=== PATIENT | female | born 1955 | race Caucasian/White ===

== ENCOUNTER 2020-01-03 06:52 | Emergency (ER) | payer OTHER, SELFPAY ==
[2020-01-03 07:08] VITALS: BP 169/102; PULSE 94; RESP 16; TEMP 36.6; O2SAT 97; BMI 38.0
--- NOTE | 2020-01-03 07:09 | ED_ITS ---
HPI - Dental/Oral General Chief complaint: General Medical Stated complaint: Lump Time Seen by Provider: 01/03/20 07:08 Source: patient Mode of arrival: ambulatory Limitations: no limitations History of Present Illness HPI Narrative: swelling has been going on for years Onset (ago): year(s) Duration: constant Severity: severe Related Data Allergies Allergy/AdvReac Type Severity Reaction Status Date / Time No Known Allergies Allergy Verified 01/03/20 07:15 Review of Systems Constitutional: Constitutional: Reports no additional constitutional complaint s Eyes: Eyes: Reports no additional eye complaints ENT: Denies dizziness Cardiovascular: Cardiovascular: Reports no additional cardiovascular complaints Respiratory: Respiratory: Reports as per HPI Gastrointestinal: Gastrointestinal: Reports no additional gastrointestinal complaints Genitourinary: Genitourinary: Reports no additional female genitourinary complaints Musculoskeletal: Musculoskeletal: Reports no additional musculoskeletal complaints Integumentary/Breasts: Skin/Breast: Denies rash Neurologic: Reports system reviewed and no additional complaints, except as documented, Denies dizziness and Denies Sensory deficit (Neuro) Psychiatric: Psychiatric: Denies anxiety [facility] Social History Social History Alcohol intake: current Alcohol intake frequency: holidays/special occasions only Alcohol type: wine Smoking Status: Current every day smoker Smoked in Last 30 Days: Yes Use of substances other than those prescribed or required for medical reasons: No Advance Directives: No Advance Directives Information Provided: No Physical Exam Vital Signs: Vital Signs: Vital Signs Temp Pulse Resp BP Pulse Ox 01/03/20 08:03 98.6 F 100 17 158/92 H 98 01/03/20 07:08 98 F 94 16 169/102 H 97 Body Mass Index 38.0 Const: Other: morbidly obese no acute distress Orientation/consciousness: oriented to person and patient oriented x3 Limitations: no limitations HENMT: Other: right mandible parotid large firm mass, mobile, pharynx normal Head: Yes normal to inspection Ears: external ears normal General nose exam: Normal external nose present Mouth: Normal oral and palatal mucosa present and oropharynx normal Throat: Yes posterior oropharynx normal Eyes: General: appearance normal, both eyes and all related structures Neck: Other: supple with large parotid mass Neck: Yes normal visual inspection Chest: Chest palpation & inspection: normal inspection of the chest Resp: Auscultation: clear to auscultation bilaterally Cardio: Jugular venous distension: no JVD Rate: regular rate Rhythm: regular rhythm Heart sounds: S1 normal heart sound present and S2 normal heart sound present GI: Inspection: Yes normal to inspection Palpation (GI): Soft to palpation, nontender and No hepatosplenomegaly present Auscultation: normal bowel sounds : General: Yes no CVA tenderness Back/Spine/Pelvis: Back: no CVA tenderness Skin: General skin exam: no rashes or lesions noted Neuro: General: oriented to person and patient oriented x3 Cranial nerves: Yes CN's II-XII intact bilaterally Motor exam (neuro): 5/5 motor strength present throughout Sensory Exam: No Sensory deficit (Neuro) Extrem: General: Yes normal to inspection Psych: Appearance: grossly normal Course Reevaluation(s) Reevaluation #1: Patient with CT that show right parotid mass, likely cancer will refer to ENT MDM - Dental/Oral MDM Narrative Medical decision making narrative: 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 Rowland Lab Data Result diagrams: 01/03/20 07:34 01/03/20 07:34 Labs: Lab Results 01/03/20 01/03/20 Range/Units 07:34 07:34 WBC 10.8 (4.8-10.8) X10*3/uL RBC 5.50 (4.20-5.50) X10*6/uL Hgb 16.5 H (12.0-16.0) g/dl Hct 50.5 H (37-47) % MCV 91.8 (80-98) fL MCH 30.0 (27.0-33.0) pg MCHC 32.7 (31.0-35.0) g/dl RDW 13.8 (11.0-16.0) % Plt Count 350 (160-400) X10*3/uL MPV 9.6 (9.4-12.3) fL Immature Gran % (Auto) 0.5 H (0.0-0.4) % Neut % (Auto) 71.1 (45-73) % Lymph % (Auto) 19.0 L (20-40) % [place] % (Auto) 7.1 (2-11) % Eos % (Auto) 1.6 (0-4) % Baso % (Auto) 0.7 (0-2) % Lymph # (Auto) 2.1 (1.2-4.9) X10*3/uL [place] # (Auto) 0.8 (0.1-1.2) X10*3/uL Eos # (Auto) 0.2 (0.0-0.4) X10*3/uL Baso # (Auto) 0.1 (0.0-0.2) X10*3/uL Abs Immat Gran (auto) 0.05 H (0.00-0.03) X10*3/uL Absolute Neuts (auto) 7.7 (2.0-8.3) X10*3/uL Absolute Nucleated RBC 0.000 (0.0-0.012) X10*3/uL Nucleated RBC % (auto) 0.0 (0.0-0.2) /100WBC Sodium 141 (135-145) mmol/L Potassium 4.8 (3.3-5.1) mmol/l Chloride 106 (96-108) mmol/L Carbon Dioxide 24 (22-29) mmol/L Anion Gap 16 (12-20) BUN 17 H (9-16) mg/dL Creatinine 0.84 (0.5-1.4) mg/dL Estim Creat Clear Calc 89.4 Estimated GFR > 60 Random Glucose 121 H (60-115) mg/dL Calcium 9.5 (8.4-10.2) mg/dL Discharge Plan 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 Baxter Referrals: Eros Baxter [Physician] - 2 days
--- NOTE | 2020-01-03 07:17 | CT_ITS ---
EXAMINATION: CT SOFT TISSUE NECK WITH CONTRAST CLINICAL INFORMATION: Large right parotid mass. COMPARISON: None TECHNIQUE: Following the intravenous administration of 100 mL of Omnipaque 350 intravenous contrast, helical imaging was performed in the axial plane with generation of coronal and sagittal reformatted images. This CT examination was performed using dose optimization techniques as appropriate, variously including the following: *Automated exposure control *Adjustment of mA and/or kV according to patient size (this includes techniques or standardized protocols for targeted exams where dose is matched to indication/reason for exam; i.e. extremities or head) *Use of iterative reconstruction technique DLP: 1404 mGy-cm FINDINGS: There is a large right mass arising from the inferior portion of the right parotid gland. It has an enhancing irregular-shaped solid component along the superior portion of the mass and a nonenhancing hypodense component along the inferior portion. It measures 5.3 cm AP, 5.1 cm in craniocaudad and 4.1 cm wide. The appearance and enhancement pattern is suggestive of malignancy unless proven otherwise. In the superior portion of the right parotid gland is a small oval enhancing 1.6 cm craniocaudad, 0.9 cm transverse and 1.6 cm in AP lymph node or additional mass. A third enhancing lesion medially within the deep parotid gland measures 2.9 x 2.1 x 2.7 cm. There is a smaller 4th posterior larger lesion in the superficial parotid gland measures 2.5 x 1.8 x 2.4 cm. It is heterogeneous with enhancing solid and nonenhancing solid lesion on axial image 42/3. There are reactive small lymph nodes seen in the right and the left neck, more numerous on the contralateral side, level 3. The largest lymph node level 3 short axis posterior to the mandible measures 0.8 cm. The submandibular glands are normal. No contour abnormality or pathologic enhancement is seen within the oral cavity or pharyngeal mucosal space. The laryngeal structures are normal. The parapharyngeal fat is preserved. The carotid sheath vasculature opacify normally. No extra mucosal soft tissue mass or fluid collection is seen. No retropharyngeal fluid collection is seen. The thyroid gland is asymmetrical and the right lobe appears slightly heterogeneous. The residual soft tissue density in the anterior mediastinum is likely residual thymus. The lung apices are clear. The mastoid air cells and visualized portions of the paranasal sinuses are well-aerated. The temporomandibular joints are normal. No periapical disease is identified. No osseous abnormalities are seen. The imaged portions of the brain parenchyma are unremarkable. CT/CT soft tissue neck w con IMPRESSION: Enlarged right parotid gland with at least 4 solid masses seen within the right parotid gland. The largest mass measures 5.3 cm. The heterogeneity of these masses and enhancement is suspicious for a malignancy such as adenoid cystic carcinoma or a mucoid pyramid carcinoma. Benign lesions such as pleomorphic adenoma is considered less likely. Normal left parotid gland. Bilateral neck lymphadenopathy more numerous in the left neck. The transverse axis of these lymph nodes less than 1 cm, likely reactive etiology.
[2020-01-03 07:48] LABS: MANUAL DIFF FLAG NO
[2020-01-03 07:50] LABS: Basophils Absolute Auto 0.1 X10*3/uL (0.0-0.2); Basophils Percent Auto 0.7 % (0-2); Eosinophils Absolute Auto 0.2 X10*3/uL (0.0-0.4); Eosinophils Percent Auto 1.6 % (0-4); Hematocrit 50.5 % (37-47); Hemoglobin 16.5 g/dl (12.0-16.0); Imm Gran Abs Auto 0.05 X10*3/uL (0.00-0.03); Imm Gran Pct Auto 0.5 % (0.0-0.4); Lymphocytes Absolute Auto 2.1 X10*3/uL (1.2-4.9); Mean Corpuscular HGB Conc 32.7 g/dl (31.0-35.0); Mean Corpuscular Volume 91.8 fL (80-98); Mean Platelet Volume 9.6 fL (9.4-12.3); Monocytes Absolute Auto 0.8 X10*3/uL (0.1-1.2); Monocytes Percent Auto 7.1 % (2-11); Neutrophils Absolute Auto 7.7 X10*3/uL (2.0-8.3); Neutrophils Percent Auto 71.1 % (45-73); Platelet Count 350 X10*3/uL (160-400); Red Cell Distribution Width 13.8 % (11.0-16.0); White Blood Count 10.8 X10*3/uL (4.8-10.8)
[2020-01-03 08:03] VITALS: BP 158/92; PULSE 100; RESP 17; TEMP 37; O2SAT 98
[2020-01-03 08:19] LABS: Anion Gap 16 (12-20); Blood Urea Nitrogen 17 mg/dL (9-16); Calcium 9.5 mg/dL (8.4-10.2); Carbon Dioxide 24 mmol/L (22-29); Chloride 106 mmol/L (96-108); Creatinine Clr Calc Pharmacy 89.4; Estimated Glomerular Filt Rate > 60; Glucose Random 121 mg/dL (60-115); Potassium 4.8 mmol/l (3.3-5.1); Sodium 141 mmol/L (135-145)
[2020-01-03] MEDS: iohexoL 350 MG/ML 100 ML INFUS..BTL 60 ML IV (09:14)
== END 2020-01-03 11:02 | disposition home or self-care (01) ==
PROVIDERS: Emergency Provider Emergency Medicine
DX: C07 Malignant neoplasm of parotid gland (principal); M54.2 Cervicalgia; F17.200 Nicotine dependence, unspecified, uncomplicated; Z71.6 Tobacco abuse counseling
CPT/HCPCS: 36415; 70491; 80048; 85025; 99284; Q9967